=== PATIENT | male | born 1990 | race Caucasian/White ===

== ENCOUNTER 2020-03-02 18:27 | Emergency (ER) | payer SELFPAY ==
[2020-03-02] MEDS ORDERED: LODINE CAP 300300 MG PO (23:27)
== END 2020-03-02 23:55 | disposition home or self-care (01) ==
LOC: ER1 18:27
DX: M54.6 Pain in thoracic spine (principal); Z88.0 Allergy status to penicillin; Z87.09 Personal history of other diseases of the respiratory system
CPT/HCPCS: 71046; 99283